=== PATIENT | male | born 1995 | race Caucasian/White ===

== ENCOUNTER 2023-11-09 10:09 | Outpatient (CLI) | payer OTHER, SELFPAY | END 2023-11-09 10:10 | LOC: GOSHIMG 10:10 | PROVIDERS: PCP Internal Medicine; Visit Provider Nurse Practitioner | DX: M25.571 Pain in right ankle and joints of right foot (principal) | CPT/HCPCS: 73630 ==

== ENCOUNTER 2025-01-05 18:34 | Emergency (ER) | payer SELFPAY ==
--- NOTE | ~2025-01-05 | XR_ITS ---
EXAM: XR shoulder RT min 2V DATE: 01/05/2025 18:47 HISTORY: fell playing hockey,deformity . COMPARISON: X-ray right clavicle 07/21/2014. FINDINGS: Normal mineralization. Ossific fragment at the inferior and distal aspect of the right cla vicle. No lytic or blastic lesion. Anterior and inferior dislocation of the humerus. No erosion or pe riosteal change. Apparent fat fluid or fat soft tissue level over the glenohumeral joint space. IMPRESSION: Anteroinferior right glenohumeral dislocation. Apparent small fracture fragment at the ti p of the distal clavicle. Radiographic findings suggestive of a glenohumeral joint lipohemarthrosis. Reviewed, dictated and finalized at location K. IMPRESSION: Anteroinferior right glenohumeral dislocation. Apparent small fract ure fragment at the tip of the distal clavicle. Radiographic findings suggestiv e of a glenohumeral joint lipohemarthrosis.
[2025-01-05 18:48] VITALS: BP 144/95; PULSE 74; RESP 18; TEMP 36.1; O2SAT 100
--- NOTE | 2025-01-05 18:54 | ED_ITS ---
HPI - Extremity Injury (Upper) General Chief Complaint: Extremity Injury, Upper Stated Complaint: RT Shoulder Pain Source: patient Mode of arrival: ambulatory Limitations: no limitations History of Present Illness HPI narrative: Patient is a 29-year-old male who presents to the clinic with complaints of right shoulder pain. He states he was playing hockey 30 minutes ago and landed on his right shoulder. He does endorse having some numbness to right forearm. He is currently rating his pain an 8/10. He states that he had [address] to the [facility]. Denies any radiation of pain. Related Data Home Medications ?Medication ?Instructions ?Recorded ?Confirmed ?Last Taken ?Type No Home Medications 11/09/23 11/09/23 Unknown History Allergies Allergy/AdvReac Type Severity Reaction Status Date / Time No Known Allergies Allergy Verified 01/05/25 19:17 Review of Systems Review of Systems: CONSTITUTIONAL: Denies body aches, fever, chills EYES: Denies visual changes ENT: Denies rhinorrhea, congestion CARDIOVASCULAR: Denies chest pain, palpitations, or edema. RESPIRATORY: Denies cough or dyspnea. SKIN: Denies rash, itching, or wounds. MUSCULOSKELETAL: Reports right shoulder pain. NEUROLOGIC: Denies headache, numbness, tingling, or weakness. All systems reviewed & are unremarkable except as noted in HPI and below PMFSH Past Medical History Medical History Asthma Broken leg Left Broken arm Right Surgical History Surgical History H/O knee surgery Family History Family History Father Family history of alcoholism Sibling Asthma Social History Social History Smoking status: Former smoker Tobacco type: cigarettes Alcohol intake: current Substance use: never Substance use type: does not use Comments At time of signature, I have reviewed and agree with nursing past medical, surgical, social and family history unless otherwise noted. Please see nursing chart for further information. There is no relevant family history pertinent to the presenting complaint. Exam Narrative: GENERAL: Well-appearing, well-nourished, and in no acute distress. HEAD: Normocephalic, atraumatic. NECK: Supple. CHEST: Speaks in full sentences. No respiratory distress. HEART: Regular rate and rhythm. Normal and equal peripheral pulses. EXTREMITIES: Right shoulder has decreased strength but normal sensation, decreased range of motion with flexion/extension, and endorses pain with movement. Right shoulder has obvious deformity noted on exam. No edema or ecchymosis, No open wounds. Pulse palpable and equal bilaterally, skin warm, d ry, pink. Capillary refill less than 3 seconds. Distal sensation intact. SKIN: Warm, dry, no rash. NEURO: Alert and oriented x3. PSYCH: Normal mood and affect. Course Course Level of Care: Express Care Visit Vital Signs Vital signs: Vital Signs Temperature 96.9 F L 01/05/25 18:48 Pulse Rate 74 01/05/25 18:48 Respiratory Rate 18 01/05/25 18:48 Blood Pressure 144/95 H 01/05/25 18:48 Pulse Oximetry 100 01/05/25 18:48 Oxygen Delivery Room Air 01/05/25 18:48 Temperature 96.9 F L 01/05/25 18:48 Pulse Rate 74 01/05/25 18:48 Respiratory Rate 18 01/05/25 18:48 Blood Pressure 144/95 H 01/05/25 18:48 Pulse Oximetry 100 01/05/25 18:48 Oxygen Delivery Room Air 01/05/25 18:48 Reviewed. Transfer Transfered to: [place] Accepting physician: Dr. Gomez. Transfer comments: Pt is agreeable to transfer. Requests transfer to [facility] via private vehicle. Risks of transportation reviewed with pt including injury, worsening of condition and . Patient's dad's girlfriend will be driving pt; Report called to [facility], spoke with Dr. Gomez, accepting physician. Pt is in stable condition at time of transfer. Advised to remain NPO and go directly to the hospital. MDM - Extremity Injury (Upper) MDM Narrative Medical decision making narrative: Discussed physical exam findings. XR showed right shoulder dislocation and distal clavicle fracture. Discussed with patient the need to transfer to ER. Pt agreeable to plan. Pt chose [facility]. Differential Diagnosis Differential diagnosis: Likely dislocation of shoulder, fracture of humerus, fracture of clavicle and other (shoulder sprain, rotator cuff tear) Imaging Data Radiologist's impression: ITS Impressions Shoulder X-Ray 01/05/25 18:59 IMPRESSION: Anteroinferior right glenohumeral dislocation. Apparent small fracture fragment at the tip of the distal clavicle. Radiographic findings suggestive of a glenohumeral joint lipohemarthrosis. Critical Care Time Critical Care Time Critical Care Time: No Discharge Plan Discharge Clinical Impression: Dislocated shoulder Patient Disposition: Acute Care Hospital Condition: Stable Patient Language: Korean Prescriptions: No Action No Home Medications Follow-up/Referrals: PHYSICIAN,ALTERATIONS SEWER [Primary Care Provider] -
== END 2025-01-05 19:01 | disposition short-term general hospital (02) ==
DX: S43.004A Unspecified dislocation of right shoulder joint, initial encounter (principal); W19.XXXA Unspecified fall, initial encounter; Y93.22 Activity, ice hockey; Z87.891 Personal history of nicotine dependence; J45.909 Unspecified asthma, uncomplicated
CPT/HCPCS: 73030; 99213; G0463

== ENCOUNTER 2025-01-05 19:17 | Emergency (ER) | payer SELFPAY ==
--- NOTE | ~2025-01-05 | XR_ITS ---
EXAM: XR shoulder RT min 2V DATE: 01/05/2025 19:56 HISTORY: post reduction. . COMPARISON: Same date at 6:43 PM. FINDINGS: The glenohumeral joint is now normally aligned. Approximately 2 cm minimally distracted av ulsion fracture fragment along the medial and superior margin of the humerus, much better seen in the present examination. A small ossified fragment at the distal tip of the clavicle is well corticated and may represent a normal variant or old fragment. IMPRESSION: Successful interval right shoulder reduction. Proximal right humeral avulsion fracture, l ikely from the teres major or latissimus dorsi insertion. The ossific fragment at the tip of the clav icle likely represents a normal variant or old fragment. Reviewed, dictated and finalized at location K. IMPRESSION: Successful interval right shoulder reduction. Proximal right tj l avulsion fracture, likely from the teres major or latissimus dorsi insertion. The ossific fragment at the tip of the clavicle likely represents a normal sarah iant or old fragment.
[2025-01-05 19:21] VITALS: BP 147/98; PULSE 98; RESP 16; TEMP 36.7; O2SAT 100
--- NOTE | 2025-01-05 19:22 | ED_ITS ---
HPI - Extremity Injury (Upper) General Chief Complaint: Extremity Injury, Upper Stated Complaint: R SHOULDER DISLOCATION Time Seen by Provider: 01/05/25 19:21 Source: patient, family and other (Urgent care) Mode of arrival: ambulatory Limitations: no limitations History of Present Illness HPI narrative: [id number] 29-year-old male Patient presents with right shoulder pain. Urgent care had provided pre arrival information that noted a hockey injury with shoulder dislocation. He states this has never happened before. He has seen an orthopedic surgeon a long time ago for 2 knee surgeries but this was not performed in the area here. He is having some paresthesias along his right forearm as well as over the right deltoid. No issues with anesthesia before. Related Data Allergies Allergy/AdvReac Type Severity Reaction Status Date / Time No Known Allergies Allergy Verified 01/05/25 19:17 [facility] Past Medical History Medical History (Updated 01/05/25 @ 20:41 by Peggy Hawthorne MD) Right hand dominant Asthma Broken leg Left Broken arm Right Surgical History Surgical History H/O knee surgery b/l Family History Family History Father Family history of alcoholism Sibling Asthma Social History Social History Social History: Plays hockey Smoking status: Former smoker Tobacco type: cigarettes Alcohol intake: current Substance use: never Substance use type: does not use Exam Narrative: GENERAL: Well-appearing, well-nourished, and in no acute distress. HEAD: Normocephalic, atraumatic. EYES: Non injected, non icteric ENT: Nares clear, no rhinorrhea or epistaxis. Gross auditory acuity intact. Mallampati 2. NECK: Supple. No meningismus. CHEST: Speaking in full sentences. No respiratory distress. HEART: Regular rate and rhythm. 2+ right radial pulse. Brisk capillary refill in right digits. ABDOMEN: Soft, nondistended. No rigidity or guarding. Not peritoneal EXTREMITIES: No lower extremity edema. Obvious deformity of right shoulder. SKIN: Warm, dry, no rash. NEURO: No focal deficits. Alert and oriented. Answering questions. Following commands. Normal speech without aphasia or dysarthria. Paresthesia over right forearm and over right deltoid. PSYCH: Normal mood and affect. Course Vital Signs Vital signs: Vital Signs Temperature 98.0 F 01/05/25 19:21 Pulse Rate 98 01/05/25 19:21 Respiratory Rate 16 01/05/25 19:21 Blood Pressure 147/98 H 01/05/25 19:21 Pulse Oximetry 100 01/05/25 19:21 Oxygen Delivery Room Air 01/05/25 19:21 Temperature 97.8 F 01/05/25 21:00 Pulse Rate 68 01/05/25 21:00 Respiratory Rate 16 01/05/25 21:00 Blood Pressure 139/87 01/05/25 21:00 Pulse Oximetry 97 01/05/25 21:00 Oxygen Delivery Room Air 01/05/25 19:21 Procedures Orthopedic Joint Reduction Joint #1: Orthopedic Joint Reduction Date: 01/05/25 Orthopedic Joint Reduction Time: 19:45 Side: right Joint Reduction Location: shoulder Analgesia: none (PO and IM medications) Pre-Procedure Neuro Vascular Exam: abnormal (paresthesias over R deltoid and R forearm) Local Anesthesia: none Shoulder Technique Used (if applicable): traction/counter-traction Post-reduction neuro exam: no change Post-reduction vascular: no change Post Reduction X-Ray Obtained: Yes Post Reduction X-Ray Results: reduced Patient Tolerated Procedure: well Additional Comments: Sling applied PROCEDURE PERFORMED BY DR CRANE MDM - Extremity Injury (Upper) MDM Narrative Medical decision making narrative: [id number] 29-year-old male Patient presents with right shoulder dislocation from urgent care. In the emergency department he is afebrile with acceptable vital signs, hypertensive. Postprocedure, patient states his pain is markedly improved but he does still endorse paresthesias over the right forearm and right deltoid. We discussed possible axillary nerve injury as well as the notation seen on initial x-ray of clavicle fracture and possible lipohemarthrosis. We also discussed the role of the sling which offloads some of the weight and allows for rest but which allows for ROM. Postreduction x-ray as below. Patient discharged in stable condition with follow-up contact information for Orthopedic surgery. Provided [id number] analgesic medication prescriptions as well as, given the appearance of possible avulsion fracture of the humerus, short course of narcotic medications. Imaging Data Attestation: I personally reviewed and interpreted this imaging study as follows: My impression: Apparent dislocation on my independent interpretation of x-ray. Reduction on my independent interpretation of post procedure xray Radiologist's impression: Pre-arrival XRAY: IMPRESSION: Anteroinferior right glenohumeral dislocation. Apparent small fracture fragment at the tip of the distal clavicle. Radiographic findings suggestive of a glenohumeral joint lipohemarthrosis. Impressions Shoulder X-Ray 01/05/25 20:09 IMPRESSION: Successful interval right shoulder reduction. Proximal right humeral avulsion fracture, likely from the teres major or latissimus dorsi insertion. The ossific fragment at the tip of the clavicle likely represents a normal variant or old fragment. Discharge Plan Discharge Clinical Impression: Dislocation of right shoulder joint, Avulsion fracture Patient Disposition: Home Condition: Stable Instructions: Antibiotic Form, Shoulder Dislocation (ED), How to Use a Sling (ED), Narcotic Safety (ED), Avulsion Fracture (ED) Additional Instructions: Follow-up with the orthopedic surgeon listed below. Call tomorrow regarding the timing of this appointment. Return to the emergency department any new or worsening symptoms. Acetaminophen/Tylenol (maximum 4000 mg per day) is safe to take with NSAIDs (ibuprofen/Motrin) for pain relief. Return to the emergency department any new or worsening symptoms. There was evidence of a possible right humeral avulsion fracture. Because of this, a short course of opiate/narcotic medications have been prescribed for breakthrough pain. Patient Language: Danish Prescriptions: New ibuprofen 600 mg tablet 600 mg PO TID PRN (Reason: pain) Qty: 30 0RF acetaminophen 500 mg capsule 1,000 mg PO Q6H PRN (Reason: pain) Qty: 30 0RF oxycodone 5 mg tablet 5 mg PO Q8H PRN (Reason: pain) Qty: 10 0RF Follow-up/Referrals: PHYSICIAN,TECHNICAL OPERATIONS MANAGER [Primary Care Provider] - Jigar Barrios MD [Physician] - Stand Alone Forms: Work/School Release IP Time of Disposition: 20:42
[2025-01-05] MEDS: HYDROmorphone HCL INJ (*CRX) 2 MG/ML VIAL 1 MG IM (19:39)
[2025-01-05] MEDS: LORazepam (*CRX) 1 MG TABLET PO (19:39)
[2025-01-05 19:47] VITALS: BP 166/105; PULSE 82; PULSE 83; RESP 14; RESP 23; O2SAT 100
[2025-01-05 20:17] VITALS: BP 151/96; PULSE 82; RESP 16; O2SAT 99
[2025-01-05 20:33] VITALS: BP 139/94; PULSE 72; RESP 12; O2SAT 98
[2025-01-05 21:00] VITALS: BP 139/87; PULSE 68; RESP 16; TEMP 36.6; O2SAT 97
== END 2025-01-05 20:57 | disposition home or self-care (01) ==
PROVIDERS: Emergency Provider Student in an Organized Health Care Education/Training Program
DX: S42.291A Other displaced fracture of upper end of right humerus, initial encounter for closed fracture (principal); J45.909 Unspecified asthma, uncomplicated; Z87.891 Personal history of nicotine dependence; Y93.22 Activity, ice hockey; V00.211A Fall from ice-skates, initial encounter
CPT/HCPCS: 23650; 73030; 96372; 99285; A4565; A9270; J1171